=== PATIENT | female | born 2000 | race Caucasian/White ===

== ENCOUNTER → 2021-05-01 11:56 | Outpatient (BNVA) | payer OTHER, SELFPAY | PROVIDERS: PCP Physician Assistant; Visit Provider Advanced Practice Midwife ==

== ENCOUNTER 2023-05-27 15:57 | Outpatient (AMB) | payer OTHER, SELFPAY ==
[2023-05-27 16:05] VITALS: BP 110/76; PULSE 86; TEMP 36.9; O2SAT 96
--- NOTE | 2023-05-27 16:05 | MHC.OFFWIV ---
Intake Vital Signs 05/27/23 16:05 Height 5 ft 3 in BP 110/76 Blood Pressure Location Lt brachial Position Sitting Pulse 86 Pulse Source Pulse Oximeter Temp 98.4 F Temp Source Oral Pulse Oximetry (%) 96 Oxygen Delivery Method Room Air Intake Visit Reasons: EST/sinus infection(lobby) Patient Tobacco Use Status: Never used Tobacco Allergies insect venom [INSECT BITES] Allergy (Unknown, Verified 05/27/23 16:21) UNKNOWN insect bites Allergy (Intermediate, Uncoded 05/27/23 16:21) Rash seasonal Allergy (Unknown, Uncoded 05/27/23 16:21) Watery Eye Medication List - Last Reconciled 05/27/23 by Nehemiah Cruz MD albuterol sulfate 2.5 mg (3 mL) inhalation Q4-6H PRN albuterol sulfate 90 mcg/actuation 2 puffs inhalation Q4-6H PRN lidocaine HCl 2% (Lidocaine Viscous) 5 mL mucous membrane TID PRN 7 days valacyclovir 1,000 mg PO BID 1 day Do you need a note to return to daycare/school/sports/work: Yes HPI EST/sinus infection(lobby) HPI Details Patient presents for a sick visit. Reporting symptoms of sinus congestion, sore throat and difficulty swallowing. Low-grade fever. No family member is sick. No recent travel. Patient reports symptoms of malaise and fatigue. PFSH Medical History Allergies Asthma HSP (Henoch Schonlein purpura) Nexplanon in place Surgical History Hx of adenoidectomy Hx of tonsillectomy Social History Alcohol intake: never Patient Tobacco Use Status: Never used Tobacco Female Reproductive History Menstrual Age of Menarche: 13 Physical Exam Vital Signs: Last Vital Signs Temp 98.4 F 05/27/23 16:05 Pulse 86 05/27/23 16:05 BP 110/76 05/27/23 16:05 Pulse Ox 96 05/27/23 16:05 Oxygen Delivery Method Room Air 05/27/23 16:05 Const General: cooperative and healthy appearing Nutritional Appearance: well nourished Orientation/consciousness: patient oriented x3 Limitations: no limitations HEENT Head: Yes normal to inspection Eyes General: appearance normal, both eyes and all related structures Neck Neck: Yes normal visual inspection Chest Chest palpation & inspection: normal palpation of entire chest wall Resp Effort & Inspection: normal respiratory effort Neuro General: patient oriented x3 Assessment & Plan Assessment & Plan (1) Upper respiratory tract infection: Code(s): J06.9 - Acute upper respiratory infection, unspecified Plan: Antibiotics ordered. Increase fluid intake. Tylenol for aches and pains. If symptoms worsen, follow-up here for a recheck. Coding Level of Care Code Est Pt Level 3 (56693) Diagnoses Upper respiratory tract infection J06.9
== END 2023-05-27 16:30 | disposition home or self-care (01) ==
PROVIDERS: Visit Provider Internal Medicine
DX: J06.9 Acute upper respiratory infection, unspecified (principal)
CPT/HCPCS: 99213

== ENCOUNTER 2023-11-09 12:29 | Outpatient (AMB) | payer OTHER, SELFPAY ==
--- NOTE | 2023-11-09 12:52 | AM.OFFWIN_ITS ---
Intake Vital Signs 11/09/23 12:53 Height 5 ft 3 in BP 122/74 Blood Pressure Location Rt brachial Position Sitting Pulse 112 H Pulse Source Pulse Oximeter Temp 98.1 F Temp Source Oral Pulse Oximetry (%) 98 Oxygen Delivery Method Room Air Intake Visit Reasons: EP cough, fever, Sinus pressure, cough (masked) Intake Note: pt is here for c/o cough, fever, sinus pressure, chest congestion x2 weeks Patient Tobacco Use Status: Never used Tobacco Allergies insect venom [INSECT BITES] Allergy (Unknown, Verified 11/09/23 12:55) UNKNOWN insect bites Allergy (Intermediate, Uncoded 05/27/23 16:21) Rash seasonal Allergy (Unknown, Uncoded 05/27/23 16:21) Watery Eye Do you need a note to return to daycare/school/sports/work: Yes HPI HPI Comments History of Present Illness Details Pt presents with mother for cough She has hx of asthms and PNA COld x 2 weeks progressive worse using nbulizer Chest feels tight + phlegm + congestion No ST or ear pain No relief with OTC cough medicine Went to an last week - strep and told URI She covid tested at home - COUNTS INCLUDE [facility] BEDS AT [facility] Medical History Allergies Asthma HSP (Henoch Schonlein purpura) Nexplanon in place Surgical History Hx of adenoidectomy Hx of tonsillectomy Social History Alcohol intake: never Patient Tobacco Use Status: Never used Tobacco Female Reproductive History Menstrual Age of Menarche: 13 Review of Systems Const Reports body aches, Reports chills, Reports fatigue and Reports fever(s) Eyes Denies blurry vision ENT Denies otalgia, Reports nasal congestion, Denies sinus pressure and Denies sore throat Card Denies chest pain, Denies rapid heart rate and Reports dyspnea Resp Reports chest congestion, Reports cough and Reports dyspnea Endo Reports fatigue Physical Exam Vital Signs: Last Vital Signs Temp 98.1 F 11/09/23 12:53 Pulse 112 H 11/09/23 12:53 BP 122/74 11/09/23 12:53 Pulse Ox 98 11/09/23 12:53 Oxygen Delivery Method Room Air 11/09/23 12:53 General: Non-toxic, NAD. Speaking full sentences. Skin: Warm dry throughout HENT: Airway patent. Uvula midline. No pharyngeal erythema or edema. No CREATIVE ARTS MUSIC THERAPIST. Bilateral canals clear. TM non-erythematous, non-bulging. No TM perforation or hemotympanum noted. Respiratory: + wheeze bilaterally and crackles LLL. No respiratory distress Cardiac: RRR. No murmur MSK: Full ROM extremities. Neurology: A/O. No aphasia or facial droop. Gait without abnormality Psych: Good mood and affect Assessment & Plan Assessment & Plan (1) Community acquired bacterial pneumonia: Code(s): J15.9 - Unspecified bacterial pneumonia Plan: Patient seen and evaluated. Crackles L base No respiratory distress Clinically + LLL CAP Will cover with doxy Tessalon for cough She has no PCP; will return if no improvement Discussed prednisone but she held at this time ED if worse like CP/SOB Patient gave verbal understanding and had no additional questions or concerns at time of discharge All questions answered Medications: New benzonatate 100 mg PO BID-TID PRN 14 caps 0RF cough J15.9 - Unspecified bacterial pneumonia doxycycline hyclate 100 mg PO BID 10 days 20 caps 0RF J15.9 - Unspecified bacterial pneumonia Coding Level of Care Code Est Pt Level 3 (71448) Diagnoses Community acquired bacterial pneumonia J15.9
[2023-11-09 12:53] VITALS: BP 122/74; PULSE 112; TEMP 36.7; O2SAT 98
== END 2023-11-09 13:52 | disposition home or self-care (01) ==
PROVIDERS: Visit Provider Physician Assistant
DX: J15.9 Unspecified bacterial pneumonia (principal)
CPT/HCPCS: 99051; 99213

== ENCOUNTER 2023-11-20 08:03 | Outpatient (AMB) | payer OTHER, SELFPAY ==
[2023-11-20 08:20] VITALS: BP 118/70; PULSE 72; TEMP 36.7; O2SAT 100; BMI 28.3
--- NOTE | 2023-11-20 08:20 | AM.OFFWIN_ITS ---
Intake Vital Signs 11/20/23 08:20 Height 5 ft 3 in Weight 160 lb BMI 28.3 BP 118/70 Blood Pressure Location Rt brachial Position Sitting Pulse 72 Pulse Source Pulse Oximeter Temp 98.1 F Temp Source Oral Pulse Oximetry (%) 100 Oxygen Delivery Method Room Air Intake Visit Reasons: EP, congestion ([phone]) Intake Note: pt is here for c/o diagnosed with pneumonia a week ago, and today is a follow up to check lungs Patient Tobacco Use Status: Never used Tobacco Allergies insect venom [INSECT BITES] Allergy (Unknown, Verified 11/20/23 08:21) UNKNOWN insect bites Allergy (Intermediate, Uncoded 05/27/23 16:21) Rash seasonal Allergy (Unknown, Uncoded 05/27/23 16:21) Watery Eye Do you need a note to return to daycare/school/sports/work: Yes HPI EP, congestion ([phone]) HPI Details This is a 22 year old female patient today for a follow-up visit. She was seen here on 11/10 and diagnosed with left lower lobe pneumonia. She was started on doxycycline and benzonatate. She reports that she is significantly improved today. Her breathing has been easier, and her fevers have resolved. She still has some mild chest congestion and sinus pressure, however this has been tolerable. She continues to treat with [id number] cold/flu products hand inhaler/nebulizer at home. [facility] Medical History Nexplanon in place Asthma Allergies HSP (Henoch Schonlein purpura) Surgical History Hx of adenoidectomy Hx of tonsillectomy Social History Alcohol intake: never Patient Tobacco Use Status: Never used Tobacco Female Reproductive History Menstrual Age of Menarche: 13 Review of Systems Const All systems reviewed & are unremarkable except as noted in HPI and below Physical Exam Vital Signs: Last Vital Signs Temp 98.1 F 11/20/23 08:20 Pulse 72 11/20/23 08:20 BP 118/70 11/20/23 08:20 Pulse Ox 100 11/20/23 08:20 Oxygen Delivery Method Room Air 11/20/23 08:20 BMI result Body Mass Index 28.3 Const General: cooperative and no acute distress HEENT Head: Yes normal to inspection Ears: hearing grossly normal bilaterally General nose exam: Normal external nose present and Normal nasal mucous membranes and turbinates present Neck Neck: Yes no lymphadenopathy Resp Effort & Inspection: normal respiratory effort and able to speak in complete sentences Auscultation: clear to auscultation bilaterally Cardio Palpation: normal PMI Rate: regular rate Rhythm: regular rhythm Skin General skin exam: no rashes or lesions noted Extrem General: Yes capillary refill normal and Yes no clubbing, cyanosis or edema Psych Appearance: grossly normal Mental Status: mental status grossly normal Speech and movement: Normal speech and movement present Assessment & Plan Assessment & Plan (1) Community acquired bacterial pneumonia: Code(s): J15.9 - Unspecified bacterial pneumonia Plan: Patient has been improving s/p Doxycycline and benzonatate regimen started 11/10. She was advised to continue conservative measures for any remaining URI symptoms, and return to the clinic if shortness of breath or fever recurs. She verbalizes understanding and agrees to plan. Work note provided. Coding Level of Care Code Est Pt Level 3 (36666) Diagnoses Community acquired bacterial pneumonia J15.9
== END 2023-11-20 08:49 | disposition home or self-care (01) ==
PROVIDERS: Visit Provider Nurse Practitioner Family
DX: J15.9 Unspecified bacterial pneumonia (principal)
CPT/HCPCS: 99213

== ENCOUNTER 2023-12-05 08:14 | Outpatient (AMB) | payer OTHER, SELFPAY ==
[2023-12-05 08:32] VITALS: BP 122/70; PULSE 68; TEMP 36.7; O2SAT 98; BMI 28.3
--- NOTE | 2023-12-05 08:32 | MHC.OFFWIV ---
Intake Vital Signs 12/05/23 08:32 Height 5 ft 3 in Weight 160 lb BMI 28.3 BP 122/70 Blood Pressure Location Rt brachial Position Sitting Pulse 68 Pulse Source Pulse Oximeter Temp 98.0 F Temp Source Temporal Artery Scan Pulse Oximetry (%) 98 Oxygen Delivery Method Room Air Intake Visit Reasons: EST/chest congestion, fever? ([phone]) Intake Note: pt is here for c.o chest congestion, sinus pressure and mucus, fever, fatigue and states she has no taste or smell since saturday morning.Patient states she did at home covid test and all were negative Patient Tobacco Use Status: Never used Tobacco Allergies insect venom [INSECT BITES] Allergy (Unknown, Verified 12/05/23 08:34) UNKNOWN insect bites Allergy (Intermediate, Uncoded 05/27/23 16:21) Rash seasonal Allergy (Unknown, Uncoded 05/27/23 16:21) Watery Eye Medication List - Last Reconciled 12/05/23 by Annia Ram NP acetaminophen 500 mg PO Q6H PRN albuterol sulfate 2.5 mg (3 mL) inhalation Q4-6H PRN albuterol sulfate 90 mcg/actuation 2 puffs inhalation Q4-6H PRN budesonide-formoterol 80-4.5 mcg/actuation (Symbicort) 2 puffs inhalation BID montelukast (Singulair) 10 mg PO BEDTIME Do you need a note to return to daycare/school/sports/work: Yes HPI HPI Comments History of Present Illness Details 22 y/o female presents to walk in clinic with c/o URI symptoms. Pt reports that symptoms started this past Saturday. Reports sinus pressure, nasal and chest congetsion, subjective fevers, fatigue, loss of taste/smell and Anorexia. Home COVID test Negative. PFSH Medical History Nexplanon in place Asthma Allergies HSP (Henoch Schonlein purpura) Surgical History Hx of adenoidectomy Hx of tonsillectomy Social History Alcohol intake: never Patient Tobacco Use Status: Never used Tobacco Female Reproductive History Menstrual Age of Menarche: 13 Review of Systems Const All systems reviewed & are unremarkable except as noted in HPI and below Physical Exam Vital Signs: Last Vital Signs Temp 98.0 F 12/05/23 08:32 Pulse 68 12/05/23 08:32 BP 122/70 12/05/23 08:32 Pulse Ox 98 12/05/23 08:32 Oxygen Delivery Method Room Air 12/05/23 08:32 BMI result Body Mass Index 28.3 HEENT Head: Yes normocephalic Ears: external ears normal and TM's normal bilaterally General nose exam: Normal nares present, Abnormal mucous membranes and turbinates present boggy and erythematous and Nasal discharge present Face and sinus: Yes sinuses nontender Mouth: Normal oral and palatal mucosa present and moist mucous membranes Throat: Yes posterior oropharynx normal, Yes uvula midline, Yes tonsils absent and No uvular edema Resp Effort & Inspection: normal respiratory effort Auscultation: clear to auscultation bilaterally Cardio Rate: regular rate Rhythm: regular rhythm Assessment & Plan Assessment & Plan (1) Upper respiratory tract infection: Code(s): J06.9 - Acute upper respiratory infection, unspecified Qualifiers: URI type: acute nasopharyngitis (common cold) Qualified Code(s): J00 - Acute nasopharyngitis [common cold] Plan: - will start on Symbo - continue on Nebulizers at home prn - start Singulair (2) Asthma with acute exacerbation: Code(s): J45.901 - Unspecified asthma with (acute) exacerbation Qualifiers: Asthma severity: moderate Asthma persistence: persistent Qualified Code(s): J45.41 - Moderate persistent asthma with (acute) exacerbation Plan: - will start on Symbo - continue on Nebulizers at home prn - start Singulair Orders: Orders SARS-CoV2/FLU/RSV Today J06.9 - Acute upper respiratory infection, unspecified, J45.901 - Unspecified asthma with (acute) exacerbation Medications: New budesonide-formoterol 80-4.5 mcg/actuation (Symbicort) 2 puffs inhalation BID 10.2 grams 0RF montelukast (Singulair) 10 mg PO BEDTIME 30 tabs 0RF acetaminophen TAKE 2 TABS EVERY 8 HOURS FOR FEVER 500 mg PO Q6H PRN 60 caps 0RF fever Coding Level of Care Code Est Pt Level 3 (19121) Diagnoses Acute nasopharyngitis J00 URI type: acute nasopharyngitis (common cold) Moderate persistent asthma with acute exacerbation J45.41 Asthma severity: moderate Asthma persistence: persistent Time Spent (min) 15
== END 2023-12-05 09:47 | disposition home or self-care (01) ==
PROVIDERS: Visit Provider Nurse Practitioner Family
DX: J00 Acute nasopharyngitis [common cold] (principal); J45.41 Moderate persistent asthma with (acute) exacerbation
CPT/HCPCS: 99213

== ENCOUNTER 2023-12-05 11:57 | Outpatient (REF) | payer OTHER, SELFPAY ==
[2023-12-05 12:47] LABS: Influenza A PCR NEGATIVE (Negative); Influenza B PCR NEGATIVE (Negative); Resp Syncy Virus RNA Qual PCR NEGATIVE (Negative); SARS COV2 PCR INHOUSE NEGATIVE (Negative)
== END 2023-12-05 11:58 | disposition home or self-care (01) ==
LOC: HO.HMGCLNP 11:57
PROVIDERS: Visit Provider Nurse Practitioner Family
DX: J06.9 Acute upper respiratory infection, unspecified (principal); J45.901 Unspecified asthma with (acute) exacerbation; Z11.52 Encounter for screening for COVID-19
CPT/HCPCS: 0241U

== ENCOUNTER 2024-01-08 08:56 | Outpatient (AMB) | payer OTHER, SELFPAY ==
--- NOTE | 2024-01-08 09:29 | A.OFFPC_ITS ---
Vital Signs 01/08/24 09:30 Height 5 ft 3 in Weight 178 lb BMI 31.5 BP 122/70 Blood Pressure Location Lt brachial Position Sitting Pulse 88 Pulse Source Pulse Oximeter Pulse Oximetry (%) 98 Oxygen Delivery Method Room Air Intake Visit Reasons: EST care. needs a PCP trans from peds Intake Note: pt is here for new patient appt, est care. Primer And Powder Canning Leader Required: No Accompanied by: Self / Same As Patient Allergies insect venom [INSECT BITES] Allergy (Unknown, Verified 01/08/24 09:41) UNKNOWN insect bites Allergy (Intermediate, Uncoded 01/08/24 09:41) Rash seasonal Allergy (Unknown, Uncoded 01/08/24 09:41) Watery Eye Medication List - Last Reconciled 01/08/24 by SETH Schmitz albuterol sulfate 2.5 mg (3 mL) inhalation Q4-6H PRN albuterol sulfate 90 mcg/actuation 2 puffs inhalation Q4-6H PRN etonogestrel (Nexplanon) subdermal montelukast (Singulair) 10 mg PO BEDTIME Tobacco use date assessed: 01/08/24 Dental Screening Dental Screen Date: 01/08/24 Did you have a dental visit in the last 12 months?: Yes Was dental information given to patient?: Patient has dentist HPI HPI Comments History of Present Illness Details Patient is a 23-year-old female here to establish care. She is due for Pap smear, will refer to OBGYN. She is up-to-date on her immunizations. She has a past medical history of asthma and elevated HANS labs. She has an established biology lecturer. Patient has no complaints at today's appointment. [facility] Medical History (Updated 01/08/24 @ 10:03 by SETH Schmitz) Staphylococcal infection of skin Nexplanon in place Asthma Allergies HSP (Henoch Schonlein purpura) Surgical History Hx of adenoidectomy Hx of tonsillectomy Family History Mother No problems noted. Social History Housing: House (with mom ) Alcohol intake: never Patient Tobacco Use Status: Never used Tobacco e-Cigarette/Vaping Use: Never Used service: No Current occupational status: employed Current occupation: behaviral therapist wih toddlers Current occupational exposures/hazards: No Cognitive needs: No Hearing needs: No Vision needs: Yes Female Reproductive History Menstrual Age of Menarche: 13 Questionnaire PHQ-9 Over the last 2 weeks, how often have you been bothered by any of the following problems? 1. Little interest or pleasure in doing things: not at all 2. Feeling down, depressed, or hopeless: not at all 3. Trouble falling or staying asleep, or sleeping too much: not at all 4. Feeling tired or having little energy: not at all 5. Poor appetite or overeating: not at all 6. Feeling bad about yourself - or that you are a failure or have let yourself or your family down: not at all 7. Trouble concentrating on things, such as reading the newspaper or watching television: not at all 8. Moving or speaking so slowly that other people could have noticed. Or the opposite - being so fidgety or restless that you have been moving around a lot more than usual: not at all 9. Thoughts that you would be better off or of hurting yourself in some way: not at all Total score: 0 Depression Screening Interpretation: Negative Depression Screening Done: Yes 79138 - PHQ-9 Billing: Yes Source: Developed by Drs. Aureliano Fuchs, Li Rincon, Alfred Carrasquillo and colleagues, with an educational america from [employer]. Thrive Questionnaire Date Thrive assessed: 01/08/24 I am a: Patient What is your living situation today?: I have a steady place to live Within the past 12 months, did the food you bought not last and you didn't have the money to get more?: Never true Within the past 12 months, did you worry whether your food would run out before you got money to buy more?: Never true Do you have trouble paying for medicines?: No Do you have trouble getting transportation to medical appointments?: No Do you have trouble paying your heating and electricity bill?: No Do you have trouble taking care of your child, family member or friend?: No Do you have trouble with day-to-day activities such as bathing, preparing meals, shopping, managing finances, etc.?: No Are you currently unemployed and looking for a job?: No Are you interested in more education?: No Please select the resources that you would like help with: None Currently or been in a relationship where the following occur: no concerns reported THRIVE Score: 0 WANDA-7 AMB Questionnaire WANDA-7 Date WANDA - 7 assessed: 01/08/24 Feeling nervous, anxious, or on edge: 0 = Not at all Not being able to stop or control worryin = Not at all Worrying too much about different things: 0 = Not at all Trouble relaxin = Not at all Being so restless that it is hard to sit still: 0 = Not at all Becoming easily annoyed or irritable: 0 = Not at all Feeling afraid as if something awful might happen: 0 = Not at all Total WANDA-7 score (0-4 normal; 5-9 mild; 10-14 moderate; 15-21 severe): 0 Source: Developed by Drs. Aureliano Fuchs, Li Rincon, Alfred Carrasquillo and colleagues, with an educational america from [employer]. WANDA-7 Assessment Billing WANDA-7 Assessment Tool: WANDA-7 Assessment 98821 Review of Systems Const Details: Constitutional : No Weight loss, No Fever, No Chills, No Fatigue, No Malaise Eyes: No Eye Pain, No Swelling, No Redness Cardiovascular : No Chest Pain, No SOB, No Dyspnea on Exertion, No Orthopnea, No Edema, No Palpitations Respiratory : No Cough, No Sputum, No Wheezing Gastrointestinal : No Nausea, No Vomiting, No Diarrhea, No Constipation, No abd ominal Pain, No Hematochezia, No Melena Genitourinary : No Dysuria, No Urinary Frequency, No Hematuria, Musculoskeletal : No joint pain, No Myalgias, No Joint Swelling Skin : No Skin Lesions, No rash Neuro : No Weakness, No Numbness, No Dizziness, No Headache Psych : No Anxiety/Panic, No Depression All other systems reviewed and are negative Physical exam (Primary Care) Vital Signs: Last Vital Signs Pulse 88 01/08/24 09:30 BP 122/70 01/08/24 09:30 Pulse Ox 98 01/08/24 09:30 Oxygen Delivery Method Room Air 01/08/24 09:30 Care Plan Goal for BP management: Vital signs reviewed are stable. BMI result Body Mass Index 31.5 Tobacco/Smoking Status: Tobacco use Status Patient Tobacco Use Status Never used Tobacco 12/05/23 08:34 Depression Screening Interpretation: Negative Currently or been in a relationship where the following occur: no concerns reported Const Other: Appearance: Alert.? Oriented X3.? No acute distress.? Neck: Normal inspection.? Neck supple.? CVS: Normal heart rate and rhythm.? Pulses normal.? Respiratory: No respiratory distress.? Breath sounds normal.? Neuro: Oriented X 3.? No motor deficit.? No sensory deficit. CN 2-12 intact Results Reviewed Results Reviewed: Will call patient with lab results. Assessment and Plan Assessment & Plan (1) Mild intermittent asthma: Comment: Patient states that she uses her albuterol inhaler 3-4 times per month. She states that sometimes during the winter she will use it more frequently. No concerns at this time. Code(s): J45.20 - Mild intermittent asthma, uncomplicated Qualifiers: Asthma complication type: uncomplicated Qualified Code(s): J45.20 - Mild intermittent asthma, uncomplicated Plan: Take your medications as prescribed. If you were prescribed antibiotics today, it is important that you take your medication to their entirety, do not skip any doses, do not finish them early. Follow-up with your primary care provider this week. Return to the emergency department with new or worsening symptoms. Such as fevers, chills, chest pain, shortness of breath, nausea, vomiting, dizziness, headache, vision changes, lethargy In case of emergency call 911 Plan Patient will have physical exam in 3-4 months. Orders: Orders Complete Blood Count Auto Diff Today Z13.0 - Encounter for screening for diseases of the blood and blood-forming organs and certain disorders involving the immune mechanism Lipid Panel Today Z13.220 - Encounter for screening for lipoid disorders Vitamin D 25-OH (D2 and D3) Today Z13.21 - Encounter for screening for nutritional disorder UA CC w/rflx Micro + Cult Today Z13.89 - Encounter for screening for other disorder TSH reflex Free T4 Today Z13.29 - Encounter for screening for other suspected endocrine disorder Comprehensive Met. Panel Today Z91.89 - Other specified personal risk factors, not elsewhere classified Referrals SERVICE ASSISTANT Referral Z12.4 - Encounter for screening for malignant neoplasm of cervix Coding Level of Care Code Est Pt Level 3 (17611) Diagnoses Mild intermittent asthma without complication J45.20 Asthma complication type: uncomplicated Additional Codes WANDA-7 Assessment Billing - WANDA-7 Assessment Tool: WANDA-7 Assessment 26526 ([id number]) Time Spent (min) 30
[2024-01-08 09:30] VITALS: BP 122/70; PULSE 88; O2SAT 98; BMI 31.5
== END 2024-01-08 12:13 | disposition home or self-care (01) ==
PROVIDERS: Visit Provider Nurse Practitioner Primary Care
DX: J45.20 Mild intermittent asthma, uncomplicated (principal)
CPT/HCPCS: 99213

== ENCOUNTER 2024-03-26 13:15 | Outpatient (AMB) | payer OTHER, SELFPAY ==
[2024-03-26 13:23] VITALS: BP 124/80; PULSE 90; TEMP 36.8; O2SAT 94; BMI 31.7
--- NOTE | 2024-03-26 13:23 | A.OFFPC_ITS ---
Vital Signs 03/26/24 13:23 Height 5 ft 3 in Weight 179 lb 4 oz BMI 31.7 BP 124/80 Blood Pressure Location Rt brachial Position Sitting Pulse 90 Pulse Source Pulse Oximeter Temp 98.2 F Temp Source Oral Pulse Oximetry (%) 94 Oxygen Delivery Method Room Air Intake Visit Reasons: FEVER/EARS BLOCKED/POSTNASAL DRIP Intake Note: Pt is here today for fever/nasal drip and also mentioned sore throat. Allergies insect venom [INSECT BITES] Allergy (Unknown, Verified 03/26/24 13:44) UNKNOWN insect bites Allergy (Intermediate, Uncoded 03/26/24 13:44) Rash seasonal Allergy (Unknown, Uncoded 03/26/24 13:44) Watery Eye Medication List - Last Reconciled 03/26/24 by SETH Schmitz albuterol sulfate 2.5 mg (3 mL) inhalation Q4-6H PRN albuterol sulfate 90 mcg/actuation 2 puffs inhalation Q4-6H PRN azithromycin For 250 mg dose pack: take 500 mg today (day 1), then 250 mg for 4 days (days 2-5) PO etonogestrel (Nexplanon) subdermal montelukast (Singulair) 10 mg PO BEDTIME prednisone 20 mg PO BID Tobacco use date assessed: 03/26/24 Dental Screening Dental Screen Date: 03/26/24 Did you have a dental visit in the last 12 months?: No Did you have a dental problem in the last 6 months where you did not have access to dental care?: No Was dental information given to patient?: No HPI HPI Comments History of Present Illness Details Patient is a 23-year-old female in today for a sick visit States she developed a fever 2 days prior to the appointment, excessive mucus production, sore throat. Has utilized Tylenol with mild effect. Denies chest pain, shortness a breath, nausea, vomiting, diarrhea. She is expectorating green mucus. 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 Will obtain URI swab. [facility] Medical History Staphylococcal infection of skin Nexplanon in place Asthma Allergies HSP (Henoch Schonlein purpura) Surgical History Hx of adenoidectomy Hx of tonsillectomy Family History Mother No problems noted. Social History Housing: House (with mom ) Alcohol intake: never Patient Tobacco Use Status: Never used Tobacco e-Cigarette/Vaping Use: Never Used service: No Current occupational status: employed Current occupation: behaviral therapist wih toddlers Current occupational exposures/hazards: No Cognitive needs: No Hearing needs: No Vision needs: Yes Female Reproductive History Menstrual Age of Menarche: 13 Questionnaire Thrive Questionnaire Date Thrive assessed: 01/08/24 AUDIT C Alcohol Use Questionnaire (AUDIT-C) 1. How often do you have a drink containing alcohol?: Never 3. How often do you have six or more drinks on one occasion?: Never Total Score: 0 Score Reviewed/Action Taken: Yes WANDA-7 AMB Questionnaire WANDA-7 Date WANDA - 7 assessed: 01/08/24 Source: Developed by Drs. Aureliano Fuchs, Li Rincon, Alfred Carrasquillo and colleagues, with an educational america from [employer]. Review of Systems Const All systems reviewed & are unremarkable except as noted in HPI and below Reports fever(s) (Patient took Tylenol before appointment) ENT Denies dizziness, Denies otalgia, Reports nasal discharge, Reports post nasal drip and Reports sore throat Card Denies chest pain and Denies dyspnea Resp Denies dyspnea GI Denies diarrhea, Denies nausea and Denies vomiting Neuro Denies dizziness Physical exam (Primary Care) Vital Signs: Last Vital Signs Temp 98.2 F 03/26/24 13:23 Pulse 90 03/26/24 13:23 BP 124/80 03/26/24 13:23 Pulse Ox 94 03/26/24 13:23 Oxygen Delivery Method Room Air 03/26/24 13:23 Care Plan Goal for BP management: Vital signs reviewed stable. BMI result Body Mass Index 31.7 Tobacco/Smoking Status: Tobacco use Status Tobacco use date assessed 03/26/24 03/26/24 13:31 Patient Tobacco Use Status Never used Tobacco 03/26/24 13:31 e-Cigarette/Vaping Use Never Used 05/09/24 13:31 Thrive Assessment: Date of Thrive Assessment Date Thrive assessed 01/08/24 03/26/24 13:31 Const Other: Appearance: Alert.? Oriented X3.? No acute distress.? Head: Normocephalic, atraumatic, Eyes: Sclera white. ENT: Pharynx erythema, +cobblestoned. +post nasal drip. TM intact and pearly fishman. + sinus tenderness. Neck: Normal inspection.? Neck supple.?Full ROM. CVS: Normal heart rate and rhythm.? Pulses normal.? Respiratory: No respiratory distress.? Breath sounds normal.? Neuro: Oriented X 3.? Results AMB Rapid Strep AMB Rapid Strep Negative Last Edit by Sean Ribeiro MA on 03/26/24 13:40 Assessment and Plan Assessment & Plan (1) Sinusitis: Comment: Will prescribe azithromycin to be taken as directed. Code(s): J32.9 - Chronic sinusitis, unspecified Qualifiers: Chronicity: acute Recurrence: non-recurrent Sinusitis location: unspecified location Qualified Code(s): J01.90 - Acute sinusitis, unspecified (2) Upper respiratory tract infection: Comment: Will give patient prednisone. Patient can also utilize [id number] medicine like Tylenol and ibuprofen Code(s): J06.9 - Acute upper respiratory infection, unspecified Qualifiers: URI type: acute nasopharyngitis (common cold) Qualified Code(s): J00 - Acute nasopharyngitis [common cold] Plan: Take your medications as prescribed. If you were prescribed antibiotics today, it is important that you take your medication to their entirety, do not skip any doses, do not finish them early. Follow-up with your primary care provider this week. Return to the emergency department with new or worsening symptoms. Such as fevers, chills, chest pain, shortness of breath, nausea, vomiting, dizziness, headache, vision changes, lethargy In case of emergency call 911 Orders: Orders SARS-CoV2/FLU/RSV Today J06.9 - Acute upper respiratory infection, unspecified Medications: New prednisone 20 mg PO BID 10 tabs 0RF azithromycin For 250 mg dose pack: take 500 mg today (day 1), then 250 mg for 4 days (days 2-5) PO 6 tabs 0RF Coding Level of Care Code Est Pt Level 3 (27413) Diagnoses Acute non-recurrent sinusitis, unspecified location J01.90 Chronicity: acute Recurrence: non-recurrent Sinusitis location: unspecified location Acute nasopharyngitis J00 URI type: acute nasopharyngitis (common cold) Time Spent (min) 22
== END 2024-03-26 14:45 | disposition home or self-care (01) ==
PROVIDERS: PCP Nurse Practitioner Primary Care; Visit Provider Nurse Practitioner Primary Care
DX: J01.90 Acute sinusitis, unspecified (principal); J00 Acute nasopharyngitis [common cold]
CPT/HCPCS: 99213

== ENCOUNTER 2024-03-26 16:24 | Outpatient (REF) | payer OTHER, SELFPAY ==
[2024-03-26 17:43] LABS: Influenza A PCR NEGATIVE (Negative); Influenza B PCR NEGATIVE (Negative); Resp Syncy Virus RNA Qual PCR NEGATIVE (Negative); SARS COV2 PCR INHOUSE NEGATIVE (Negative)
== END 2024-03-26 16:25 | disposition home or self-care (01) ==
LOC: HO.HHCLNP 16:24
PROVIDERS: Visit Provider Nurse Practitioner Primary Care
DX: J06.9 Acute upper respiratory infection, unspecified (principal)
CPT/HCPCS: 0241U

== ENCOUNTER 2024-04-01 14:40 | Outpatient (AMB) | payer OTHER, SELFPAY ==
[2024-04-01 14:48] VITALS: BP 126/78; PULSE 97; TEMP 36.6; O2SAT 98; BMI 32.1
--- NOTE | 2024-04-01 14:48 | MHC.OFFWIV ---
Intake Intake Visit Reasons: chronic diarrea Patient Tobacco Use Status: Never used Tobacco Allergies insect venom [INSECT BITES] Allergy (Unknown, Verified 03/26/24 13:44) UNKNOWN insect bites Allergy (Intermediate, Uncoded 03/26/24 13:44) Rash seasonal Allergy (Unknown, Uncoded 03/26/24 13:44) Watery Eye PFSH Medical History Staphylococcal infection of skin Nexplanon in place Asthma Allergies HSP (Henoch Schonlein purpura) Surgical History Hx of adenoidectomy Hx of tonsillectomy Family History Mother No problems noted. Social History Housing: House (with mom ) Alcohol intake: never Patient Tobacco Use Status: Never used Tobacco e-Cigarette/Vaping Use: Never Used service: No Current occupational status: employed Current occupation: behaviral therapist wih toddlers Current occupational exposures/hazards: No Cognitive needs: No Hearing needs: No Vision needs: Yes Female Reproductive History Menstrual Age of Menarche: 13 Coding
--- NOTE | 2024-04-01 14:49 | A.OFFPC_ITS ---
Vital Signs 04/01/24 14:48 Height 5 ft 3 in Weight 181 lb BMI 32.1 BP 126/78 Blood Pressure Location Rt brachial Position Sitting Pulse 97 Pulse Source Pulse Oximeter Temp 97.9 F Temp Source Oral Pulse Oximetry (%) 98 Intake Visit Reasons: chronic diarrea Intake Note: pt is here for chronic diarrhea Allergies insect venom [INSECT BITES] Allergy (Unknown, Verified 04/01/24 14:49) UNKNOWN prednisone Adverse Reaction (Intermediate, Verified 04/01/24 15:24) Diarrhea insect bites Allergy (Intermediate, Uncoded 03/26/24 13:44) Rash seasonal Allergy (Unknown, Uncoded 03/26/24 13:44) Watery Eye Tobacco use date assessed: 03/26/24 Dental Screening Dental Screen Date: 03/26/24 HPI HPI Comments History of Present Illness Details Patient is a 23-year-old female in today for a sick visit. She was recently seen in office 6 days prior with upper respiratory symptoms, including sore throat, excessive mucus production, sinus tenderness. Patient was given prednisone and azithromycin. Patient presents today with complaints of frequent diarrhea and reflux since she started the medication 6 days prior. Her mom is present during the appointment and states that she remembers patient had sensitivity to prednisone when she was younger. Will update patient's file to have adverse reaction to prednisone. Patient also had symptoms of insomnia and feeling fidgety which subsided when she stopped the prednisone. Patient is able to eat and drink. No vomiting. Patient has no chest pain or shortness of breath. Does have minimal weakness. Will order labs today including stool sample and GI panel. Potential for C diff based on azithromycin use, though symptoms are likely side effect from p rednisone. Will prescribe loperamide and famotidine. [facility] Medical History Staphylococcal infection of skin Nexplanon in place Asthma Allergies HSP (Henoch Schonlein purpura) Surgical History Hx of adenoidectomy Hx of tonsillectomy Family History Mother No problems noted. 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 Aureliano Fuchs, Li Rincon, Alfred Carrasquillo and colleagues, with an educational america from [email or web address]. Review of Systems Const All systems reviewed & are unremarkable except as noted in HPI and below Denies chills, Denies fever(s) and Reports malaise ENT Denies dysphagia and Denies dizziness Card Denies chest pain and Denies dyspnea Resp Denies cough, Denies dyspnea and Denies wheezing GI Denies hematochezia, Denies constipation, Denies dysphagia, Reports dyspepsia, Reports diarrhea, Denies nausea and Denies vomiting Neuro Denies dizziness Aller/Immun Denies wheezing Physical exam (Primary Care) Vital Signs: Last Vital Signs Temp 97.9 F 04/01/24 14:48 Pulse 97 04/01/24 14:48 BP 126/78 04/01/24 14:48 Pulse Ox 98 04/01/24 14:48 Care Plan Goal for BP management: Vitals signs stable. BMI result Body Mass Index 32.1 Tobacco/Smoking Status: Tobacco use Status Tobacco use date assessed 03/26/24 04/01/24 14:49 Patient Tobacco Use Status Never used Tobacco 04/01/24 14:49 e-Cigarette/Vaping Use Never Used 04/01/24 14:49 Thrive Assessment: Date of Thrive Assessment Date Thrive assessed 01/08/24 04/01/24 14:49 Const Other: Appearance: Alert.? Oriented X3.? No acute distress.? Head: Normocephalic, Respiratory: No respiratory distress.? Abdomen: Soft and nontender.? Neuro: Oriented X 3.? Assessment and Plan Assessment & Plan (1) Diarrhea: Comment: Will draw a GI panel, C diff. will also draw CMP CBC. Patient given loperamide and famotidine. Will follow-up with lab results. Patient has been instructed to stay hydrated drinking preferably Pedialyte. Should also go on brat diet eating bland foods that she can tolerate. Patient has been educated on signs of worsening symptoms when to report to the walk-in or when to present to the ED Code(s): R19.7 - Diarrhea, unspecified Qualifiers: Diarrhea type: unspecified type Qualified Code(s): R19.7 - Diarrhea, unspecified Plan: Take your medications as prescribed. If you were prescribed antibiotics today, it is important that you take your medication to their entirety, do not skip any doses, do not finish them early. Return to the emergency department with new or worsening symptoms. Such as fevers, chills, chest pain, shortness of breath, nausea, vomiting, dizziness, headache, vision changes, lethargy In case of emergency call 911 Orders: Orders GI Panel Today R19.7 - Diarrhea, unspecified Complete Blood Count Auto Diff Today R19.7 - Diarrhea, unspecified Basic Metabolic Panel Today R19.7 - Diarrhea, unspecified CDiff Gene PCR Today R19.7 - Diarrhea, unspecified Medications: New famotidine 20 mg PO BEDTIME 30 tabs 0RF abd pain loperamide 2 mg PO Q6H PRN 30 caps 0RF loose stool Coding Level of Care Code Est Pt Level 3 (75123) Diagnoses Diarrhea, unspecified type R19.7 Diarrhea type: unspecified type Time Spent (min) 28
== END 2024-04-01 16:28 | disposition home or self-care (01) ==
PROVIDERS: PCP Nurse Practitioner Primary Care; Visit Provider Nurse Practitioner Primary Care
DX: R19.7 Diarrhea, unspecified (principal)
CPT/HCPCS: 99213

== ENCOUNTER 2024-04-02 13:50 | Outpatient (REF) | payer OTHER, SELFPAY ==
[2024-04-02 16:32] LABS: MANUAL DIFF FLAG NO
[2024-04-02 16:43] LABS: Basophils Absolute Auto 0.1 X10*3/uL (0.0-0.2); Basophils Percent Auto 0.6 % (0-2); Eosinophils Absolute Auto 0.3 X10*3/uL (0.0-0.4); Eosinophils Percent Auto 3.1 % (0-4); Hematocrit 42.5 % (37.0-47.0); Hemoglobin 13.3 g/dl (12.0-16.0); Imm Gran Abs Auto 0.05 X10*3/uL (0.00-0.03); Imm Gran Pct Auto 0.5 % (0.0-0.4); Lymphocytes Absolute Auto 3.3 X10*3/uL (1.2-4.9); Mean Corpuscular HGB Conc 31.3 g/dl (31.0-35.0); Mean Corpuscular Hemoglobin 26.5 pg (27.0-33.0); Mean Corpuscular Volume 84.8 fL (80.0-98.0); Monocytes Absolute Auto 0.8 X10*3/uL (0.1-1.2); Monocytes Percent Auto 8.4 % (2-11); Neutrophils Absolute Auto 5.1 x10*3/uL (2.0-8.3); Neutrophils Percent Auto 53.4 % (45-73); Platelet Count 376 X10*3/uL (160-400); Red Blood Count 5.01 X10*6/uL (4.20-5.50); Red Cell Distribution Width 12.7 % (11.0-16.0); White Blood Count 9.6 X10*3/uL (4.8-10.8)
[2024-04-02 16:57] LABS: Anion Gap 13 (12-20); Blood Urea Nitrogen 10 mg/dL (9-16); Calcium 8.9 mg/dL (8.4-10.2); Carbon Dioxide 28 mmol/L (22-29); Chloride 103 mmol/L (96-108); Estimated Glomerular Filt Rate > 60; Glucose Random 76 mg/dL (60-115); Potassium 3.4 mmol/L (3.3-5.1); Sodium 141 mmol/L (135-145)
== END 2024-04-02 13:51 | disposition home or self-care (01) ==
LOC: HO.HMGCLDS 13:50
PROVIDERS: PCP Nurse Practitioner Primary Care; Visit Provider Nurse Practitioner Primary Care
DX: R19.7 Diarrhea, unspecified (principal)
CPT/HCPCS: 36415; 80048; 85025

== ENCOUNTER 2024-04-03 13:20 | Outpatient (REF) | payer OTHER, SELFPAY ==
[2024-04-03 16:07] LABS: MANUAL DIFF FLAG NO
[2024-04-03 16:12] LABS: Appearance Urine Turbid; Color Urine Yellow; Glucose Urine UA Negative (Negative); Leukocyte Esterase Urine Negative (Negative); Nitrite Urine Negative (Negative); Specific Gravity - Urine 1.025 (1.005-1.025); Urine Blood Negative (Negative); Urine Ketones Trace mg/dL (Negative); Urine Protein Trace mg/dL (Neg-Trace)
[2024-04-03 16:19] LABS: Basophils Absolute Auto 0.1 X10*3/uL (0.0-0.2); Basophils Percent Auto 0.6 % (0-2); Eosinophils Absolute Auto 0.3 X10*3/uL (0.0-0.4); Hematocrit 42.7 % (37.0-47.0); Hemoglobin 13.6 g/dl (12.0-16.0); Imm Gran Abs Auto 0.04 X10*3/uL (0.00-0.03); Imm Gran Pct Auto 0.5 % (0.0-0.4); Lymphocytes Absolute Auto 2.7 X10*3/uL (1.2-4.9); Lymphocytes Percent Auto 33.4 % (20-40); Mean Corpuscular HGB Conc 31.9 g/dl (31.0-35.0); Mean Corpuscular Hemoglobin 26.6 pg (27.0-33.0); Mean Corpuscular Volume 83.6 fL (80.0-98.0); Mean Platelet Volume 9.1 fL (9.4-12.3); Monocytes Absolute Auto 0.6 X10*3/uL (0.1-1.2); Monocytes Percent Auto 8.1 % (2-11); Neutrophils Absolute Auto 4.2 x10*3/uL (2.0-8.3); Neutrophils Percent Auto 53.4 % (45-73); Platelet Count 384 X10*3/uL (160-400); Red Blood Count 5.11 X10*6/uL (4.20-5.50); Red Cell Distribution Width 12.5 % (11.0-16.0); White Blood Count 7.9 X10*3/uL (4.8-10.8)
[2024-04-03 16:32] LABS: Alanine Aminotransferase 21 U/L (0-31); Alkaline Phosphatase 64 U/L (39-117); Anion Gap 11 (12-20); Aspartate Amino Transferase 19 U/L (5-31); Bilirubin Total 0.3 mg/dL (0.0-1.0); Blood Urea Nitrogen 10 mg/dL (9-16); Calcium 9.1 mg/dL (8.4-10.2); Carbon Dioxide 28 mmol/L (22-29); Chloride 102 mmol/L (96-108); Cholesterol 166 mg/dL (<200); Estimated Glomerular Filt Rate > 60; Glucose Random 88 mg/dL (60-115); HDL Cholesterol 42 mg/dL (>40); LDL Cholesterol Calculated 107 mg/dL (<100); Potassium 3.8 mmol/L (3.3-5.1); Sodium 137 mmol/L (135-145); Total Protein 6.7 g/dL (6.5-8.0); Triglycerides 88 mg/dL (<150)
[2024-04-04 10:31] LABS: Adenovirus F 40/41 Not Detected (Not Detect.); Astrovirus Not Detected (Not Detect.); Campylobacter Not Detected (Not Detect.); Cryptosporidium Not Detected (Not Detect.); Cyclospora cayetanensis Not Detected (Not Detect.); E. coli EAEC Not Detected (Not Detect.); E. coli EPEC Not Detected (Not Detect.); E. coli ETEC Not Detected (Not Detect.); E. coli STEC Not Detected (Not Detect.); Entamoeba histolytica Not Detected (Not Detect.); Giardia lamblia Not Detected (Not Detect.); Plesiomonas shigelloides Not Detected (Not Detect.); Rotavirus A Not Detected (Not Detect.); Salmonella Not Detected (Not Detect.); Sapovirus Not Detected (Not Detect.); Shigella sp./EIEC Not Detected (Not Detect.); Vibrio Not Detected (Not Detect.); Vibrio Cholerae Not Detected (Not Detect.); Yersinia enterocolitica Not Detected (Not Detect.)
[2024-04-07 09:34] LABS: Norovirus Stool PCR NOT DETECTED
[2024-04-08 18:14] LABS: Vitamin D 25-OH, D2 <4 ng/mL; Vitamin D 25-OH, D3 23 ng/mL; Vitamin D 25-OH, Total 23 ng/mL (30-100)
== END 2024-04-03 13:21 | disposition home or self-care (01) ==
LOC: HO.HMGCLDS 13:20
PROVIDERS: PCP Nurse Practitioner Primary Care; Visit Provider Nurse Practitioner Primary Care
DX: R19.7 Diarrhea, unspecified (principal); Z13.0 Encounter for screening for diseases of the blood and blood-forming organs and certain disorders involving the immune mechanism; Z91.89 Other specified personal risk factors, not elsewhere classified; Z13.220 Encounter for screening for lipoid disorders; Z13.29 Encounter for screening for other suspected endocrine disorder; Z13.89 Encounter for screening for other disorder; Z13.21 Encounter for screening for nutritional disorder
CPT/HCPCS: 80053; 80061; 81003; 82306; 84443; 85025; 87507